=== PATIENT | female | born 1950 | race African-American/Black ===

== ENCOUNTER 2018-02-12 08:30 | Inpatient (IN) ==
[2018-02-12 09:27] LABS: Lactic Acid 4.3 MMOL/L (0.4-2.0)
[2018-02-12] MEDS ORDERED: SODIUM CHLORIDE 0.9% 1,000 ML IV STA ×3 (09:46→12:31)
[2018-02-12] MEDS ORDERED: ACETAMINOPHEN 500 MG TABLET PO STA (09:48)
[2018-02-12 10:15] LABS: Basophils % 0.2 % (0.0-0.8); Eosinophils % 0.1 % (0.00-10.9); Immature Granulocytes % 1.1 %; Immature Granulocytes Absolute 0.23 #; Lymphocytes # 0.5 10*3/uL (1.4-4.0); Lymphocytes % 2.4 % (21.3-54.2); Mean Corpuscular HGB Conc 32.5 GM/DL (32-36); Mean Corpuscular Hemoglobin 30 PG (27-34); Mean Corpuscular Volume 92.2 FL (87-102); Mean Platelet Volume 12.2 FL (9.6-12.0); Monocytes # 0.5 10*3/uL (0.11-0.8); Monocytes % 2.3 % (1.7-12.7); Neutrophils % 93.9 % (38.7-73.9); Platelet Count 209 T/CUMM (130-400); Red Blood Count 4.34 MC/CUMM (3.8-5.5); Red Cell Distribution Width 12.2 % (9.3-17.3); White Blood Count 20.3 T/CUMM (4-12)
[2018-02-12 10:31] LABS: Albumin 3.3 G/DL (3.4-5.0); Bilirubin,Total 1.2 MG/DL (0.2-1.0); Calcium 9.7 MG/DL (8.5-10.1); Potassium 3.4 MMOL/L (3.5-5.1); Total Protein 8.4 G/DL (6.4-8.3)
[2018-02-12 10:47] LABS: Apearance,Urine Slightly Hazy (Clear); Bacteria,Urine Occasional /HPF (Few); Bilirubin,Urine Negative (Negative); Blood, Urine Negative (Negative); Glucose,Urine (UA) 50 mg/dL (Negative); Hyaline Casts,Urine 3 /LPF (0-3); Ketones,Urine Negative (Negative); Mucus,Urine Occasional /LPF (Occasional); Nitrite,Urine Negative (Negative); Protein,Urine 30 MG/DL; RBC,Urine 6 /HPF (0-4); Squamous Epithelial Cell,Urine Occasional /HPF (0-10); Urine Color Amber (Yellow); Urine Specific Gravity 1.019 (1.001-1.035); Urine Urobilinogen < 2.0 EU/DL (0.2-1.0); WBC,Urine 2 /HPF (0-6)
[2018-02-12 11:03] LABS: Band Neutrophils 6 % (0-10); Hypochromasia Slight; Lymphocytes 2 % (20-55); Platelet Estimate Normal; Polychromasia Slight; Segmented Neutrophils 90 % (50-85); Total Cells Counted 100
[2018-02-12] MEDS ORDERED: LEVOFLOXACIN INJ 750 MG in PREMIX 1 EACH IV STA (12:09)
[2018-02-12] MEDS ORDERED: ONDANSETRON 4 MG/2 ML VIAL IV PRN (12:25)
[2018-02-12] MEDS ORDERED: DOCUSATE SODIUM 100 MG CAPSULE PO PRN (12:25)
[2018-02-12] MEDS ORDERED: GLUCAGON 1 MG VIAL IM PRN (12:25)
[2018-02-12] MEDS ORDERED: ACETAMINOPHEN 325 MG TABLET PO PRN (12:25)
[2018-02-12] MEDS ORDERED: DEXTROSE 50% 25 GM/50 ML VIAL IV PRN (12:25)
[2018-02-12] MEDS: ENOXAPARIN 30 MG/0.3 ML SYRINGE SUBCUT SCH (14:40)
[2018-02-12] MEDS: SODIUM CHLORIDE 0.9% 1,000 ML IV SCH (15:51)
[2018-02-12] MEDS ORDERED: LEVOFLOXACIN INJ 500 MG in PREMIX 1 EACH IV ONE (17:00)
[2018-02-12] MEDS: INSULIN LISPRO 100 UNIT/ML SUBCUT SCH ×2 (19:07→21:00)
[2018-02-12] MEDS: METOPROLOL TARTRATE 50 MG TABLET PO SCH (21:24)
[2018-02-12] MEDS: OSELTAMIVIR 75 MG CAPSULE PO SCH (21:24)
[2018-02-13] MEDS: SODIUM CHLORIDE 0.9% 1,000 ML IV SCH ×4 (00:07→22:16)
[2018-02-13] MEDS: ACETAMINOPHEN 325 MG TABLET PO PRN ×2 (00:07→14:18)
[2018-02-13 06:39] LABS: Basophils # 0.1 10*3/uL (0.0-0.2); Basophils % 0.3 % (0.0-0.8); Hematocrit 38.1 VOL% (35.7-47.0); Hemoglobin 12.1 GM/DL (12.0-16.0); Immature Granulocytes % 2.4 %; Immature Granulocytes Absolute 0.64 #; Lymphocytes # 1.5 10*3/uL (1.4-4.0); Lymphocytes % 5.9 % (21.3-54.2); Mean Corpuscular HGB Conc 31.8 GM/DL (32-36); Mean Corpuscular Hemoglobin 30 PG (27-34); Mean Corpuscular Volume 93.2 FL (87-102); Mean Platelet Volume 12.2 FL (9.6-12.0); Monocytes # 0.6 10*3/uL (0.11-0.8); Monocytes % 2.1 % (1.7-12.7); Neutrophils # 23.3 10*3/uL (1.4-7.4); Neutrophils % 89.3 % (38.7-73.9); Platelet Count 180 T/CUMM (130-400); Red Blood Count 4.09 MC/CUMM (3.8-5.5); Red Cell Distribution Width 12.7 % (9.3-17.3); White Blood Count 26.2 T/CUMM (4-12)
[2018-02-13 06:53] LABS: Albumin 2.8 G/DL (3.4-5.0); Bilirubin,Total 1.6 MG/DL (0.2-1.0); Calcium 8.3 MG/DL (8.5-10.1); Potassium 3.4 MMOL/L (3.5-5.1); Total Protein 8.1 G/DL (6.4-8.3)
[2018-02-13 07:10] LABS: Band Neutrophils 10 % (0-10); Eosinophils 1 % (0-10); Hypochromasia Slight; Lymphocytes 4 % (20-55); Metamyelocytes 1 %; Segmented Neutrophils 84 % (50-85); Total Cells Counted 100
[2018-02-13 07:11] LABS: Microcytosis Slight; Platelet Estimate Adequate
[2018-02-13] MEDS ORDERED: POTASSIUM CHLORIDE 20 MEQ TABLET PO ONE (08:51)
[2018-02-13] MEDS: INSULIN LISPRO 100 UNIT/ML SUBCUT SCH ×5 (09:59→22:38)
[2018-02-13] MEDS: PANTOPRAZOLE 40 MG TABLET PO SCH (10:00)
[2018-02-13] MEDS: METOPROLOL TARTRATE 50 MG TABLET PO SCH ×2 (10:00→20:35)
[2018-02-13] MEDS: OSELTAMIVIR 75 MG CAPSULE PO SCH ×2 (10:00→20:35)
[2018-02-13] MEDS: amLODIPine 10 MG TABLET PO SCH (10:03)
[2018-02-13] MEDS: glipiZIDE 5 MG TABLET PO SCH (10:03)
[2018-02-13] MEDS: ENOXAPARIN 30 MG/0.3 ML SYRINGE SUBCUT SCH (12:35)
[2018-02-13] MEDS: metroNIDAZOLE INJ 500 MG in PREMIX 1 EACH IV SCH ×2 (14:18→20:34)
[2018-02-13] MEDS ORDERED: MAGNESIUM SULF RIDER 4 GM in PREMIX 1 EACH IV ONE (14:39)
[2018-02-13] MEDS ORDERED: LEVOFLOXACIN INJ 250 MG in PREMIX 1 EACH IV SCH (21:00)
[2018-02-14 01:48] LABS: Basophils # 0.1 10*3/uL (0.0-0.2); Basophils % 0.2 % (0.0-0.8); Hematocrit 32.3 VOL% (35.7-47.0); Hemoglobin 10.5 GM/DL (12.0-16.0); Immature Granulocytes % 2.1 %; Immature Granulocytes Absolute 0.49 #; Lymphocytes # 1.5 10*3/uL (1.4-4.0); Lymphocytes % 6.2 % (21.3-54.2); Mean Corpuscular HGB Conc 32.5 GM/DL (32-36); Mean Corpuscular Hemoglobin 30 PG (27-34); Mean Corpuscular Volume 92.3 FL (87-102); Mean Platelet Volume 12.3 FL (9.6-12.0); Monocytes # 0.7 10*3/uL (0.11-0.8); Monocytes % 2.9 % (1.7-12.7); Neutrophils # 20.9 10*3/uL (1.4-7.4); Neutrophils % 88.6 % (38.7-73.9); Platelet Count 156 T/CUMM (130-400); Red Cell Distribution Width 12.8 % (9.3-17.3); White Blood Count 23.6 T/CUMM (4-12)
[2018-02-14 02:09] LABS: Albumin 2.3 G/DL (3.4-5.0); Bilirubin,Total 1.3 MG/DL (0.2-1.0); Calcium 7.9 MG/DL (8.5-10.1); Osmolality,Calculated 279.8 MOS/KG (273-304); Potassium 3.5 MMOL/L (3.5-5.1); Total Protein 7.1 G/DL (6.4-8.3)
[2018-02-14 02:16] LABS: Lactic Acid 1.7 MMOL/L (0.4-2.0)
[2018-02-14] MEDS: metroNIDAZOLE INJ 500 MG in PREMIX 1 EACH IV SCH ×2 (02:25→08:23)
[2018-02-14 02:41] LABS: Band Neutrophils 7 % (0-10); Eosinophils 1 % (0-10); Lymphocytes 9 % (20-55); Metamyelocytes 1 %; Segmented Neutrophils 75 % (50-85); Total Cells Counted 100
[2018-02-14 02:42] LABS: Hypochromasia Slight; Platelet Estimate Adequate
[2018-02-14 05:25] LABS: Basophils # 0.1 10*3/uL (0.0-0.2); Basophils % 0.3 % (0.0-0.8); Hematocrit 30.5 VOL% (35.7-47.0); Hemoglobin 9.8 GM/DL (12.0-16.0); Immature Granulocytes % 1.9 %; Immature Granulocytes Absolute 0.41 #; Lymphocytes # 1.6 10*3/uL (1.4-4.0); Lymphocytes % 7.2 % (21.3-54.2); Mean Corpuscular HGB Conc 32.1 GM/DL (32-36); Mean Corpuscular Hemoglobin 30 PG (27-34); Mean Corpuscular Volume 92.7 FL (87-102); Mean Platelet Volume 12.1 FL (9.6-12.0); Monocytes # 0.6 10*3/uL (0.11-0.8); Monocytes % 2.6 % (1.7-12.7); Neutrophils # 19.2 10*3/uL (1.4-7.4); Platelet Count 147 T/CUMM (130-400); Red Blood Count 3.29 MC/CUMM (3.8-5.5); Red Cell Distribution Width 12.8 % (9.3-17.3); White Blood Count 21.8 T/CUMM (4-12)
[2018-02-14 05:55] LABS: Albumin 2.3 G/DL (3.4-5.0); Bilirubin,Total 1.3 MG/DL (0.2-1.0); Calcium 7.7 MG/DL (8.5-10.1); Osmolality,Calculated 279.8 MOS/KG (273-304); Potassium 3.4 MMOL/L (3.5-5.1); Total Protein 6.8 G/DL (6.4-8.3)
[2018-02-14 05:57] LABS: Band Neutrophils 2 % (0-10); Lymphocytes 5 % (20-55); Segmented Neutrophils 92 % (50-85); Total Cells Counted 100
[2018-02-14 05:58] LABS: Hypochromasia Slight; Platelet Estimate Adequate; Polychromasia Slight
[2018-02-14] MEDS ORDERED: POTASSIUM CHLORIDE 20 MEQ TABLET PO ONE (06:02)
[2018-02-14] MEDS: INSULIN LISPRO 100 UNIT/ML SUBCUT SCH ×4 (08:25→20:22)
[2018-02-14] MEDS: OSELTAMIVIR 75 MG CAPSULE PO SCH ×2 (08:26→20:22)
[2018-02-14] MEDS: PANTOPRAZOLE 40 MG TABLET PO SCH (08:26)
[2018-02-14] MEDS: glipiZIDE 5 MG TABLET PO SCH (08:27)
[2018-02-14] MEDS: amLODIPine 10 MG TABLET PO SCH (08:27)
[2018-02-14] MEDS ORDERED: ASPIRIN EC 81 MG TABLET PO SCH (09:00)
[2018-02-14] MEDS: SODIUM CHLORIDE 0.9% 1,000 ML IV SCH ×3 (09:21→20:41)
[2018-02-14] MEDS: METOPROLOL TARTRATE 50 MG TABLET PO SCH ×2 (10:18→20:22)
[2018-02-14] MEDS: ENOXAPARIN 30 MG/0.3 ML SYRINGE SUBCUT SCH ×2 (11:53→14:32)
[2018-02-14] MEDS ORDERED: LEVOFLOXACIN INJ 500 MG in PREMIX 1 EACH IV SCH (12:00)
[2018-02-15 06:05] LABS: Calcium 7.8 MG/DL (8.5-10.1); Osmolality,Calculated 285.3 MOS/KG (273-304); Potassium 3.7 MMOL/L (3.5-5.1)
[2018-02-15 08:33] VITALS: BP 119/67
[2018-02-15 08:47] LABS: Basophils # 0.1 10*3/uL (0.0-0.2); Basophils % 0.4 % (0.0-0.8); Eosinophils # 0.3 10*3/uL (0.0-0.87); Hemoglobin 9.3 GM/DL (12.0-16.0); Immature Granulocytes % 0.7 %; Immature Granulocytes Absolute 0.09 #; Lymphocytes # 2.1 10*3/uL (1.4-4.0); Mean Corpuscular HGB Conc 32.1 GM/DL (32-36); Mean Corpuscular Hemoglobin 30 PG (27-34); Mean Corpuscular Volume 92.1 FL (87-102); Mean Platelet Volume 12.8 FL (9.6-12.0); Monocytes # 0.6 10*3/uL (0.11-0.8); Monocytes % 4.5 % (1.7-12.7); Neutrophils # 10.6 10*3/uL (1.4-7.4); Neutrophils % 77.4 % (38.7-73.9); Platelet Count 142 T/CUMM (130-400); Red Blood Count 3.15 MC/CUMM (3.8-5.5); Red Cell Distribution Width 13.1 % (9.3-17.3); White Blood Count 13.7 T/CUMM (4-12)
[2018-02-15] MEDS: amLODIPine 10 MG TABLET PO SCH (09:17)
[2018-02-15] MEDS: glipiZIDE 5 MG TABLET PO SCH (09:17)
[2018-02-15] MEDS: PANTOPRAZOLE 40 MG TABLET PO SCH (09:17)
[2018-02-15] MEDS: INSULIN LISPRO 100 UNIT/ML SUBCUT SCH (09:18)
[2018-02-15] MEDS: OSELTAMIVIR 75 MG CAPSULE PO SCH (09:18)
[2018-02-15] MEDS: METOPROLOL TARTRATE 50 MG TABLET PO SCH (09:18)
[2018-02-15] MEDS: SODIUM CHLORIDE 0.9% 1,000 ML IV SCH ×2 (10:35→11:59)
== END 2018-02-15 12:16 | disposition home or self-care (01) | DRG 872 ==
LOC: N.ED 08:30 → N.EDINP 12:25 → N.5E 14:01
PROVIDERS: ADMIT Internal Medicine; ATTEND Internal Medicine

== ENCOUNTER 2018-10-21 05:39 | Observation (INO) ==
[2018-10-21 07:41] LABS: Basophils # 0.1 10*3/uL (0.0-0.2); Basophils % 0.3 % (0.0-0.8); Eosinophils % 0.2 % (0.00-10.9); Hematocrit 36.5 VOL% (35.7-47.0); Hemoglobin 11.4 GM/DL (12.0-16.0); Immature Granulocytes % 0.6 %; Lymphocytes # 0.9 10*3/uL (1.4-4.0); Mean Corpuscular HGB Conc 31.2 GM/DL (32-36); Mean Corpuscular Volume 93.6 FL (87-102); Mean Platelet Volume 11.5 FL (9.6-12.0); Monocytes % 2.9 % (1.7-12.7); Platelet Count 202 T/CUMM (130-400); Red Cell Distribution Width 12.6 % (9.3-17.3); White Blood Count 17.9 T/CUMM (4-12)
[2018-10-21 08:01] LABS: Albumin 3.3 G/DL (3.4-5.0); Bilirubin,Total 0.9 MG/DL (0.2-1.0); Calcium 9.3 MG/DL (8.5-10.1); Osmolality,Calculated 280.8 MOS/KG (273-304); Total Protein 8.3 G/DL (6.4-8.3)
[2018-10-21 08:45] LABS: Apearance,Urine CLEAR (Clear); Bilirubin,Urine Negative (Negative); Blood, Urine Large mg/dL (Negative); Glucose,Urine (UA) Negative (Negative); Ketones,Urine Negative (Negative); Nitrite,Urine Negative (Negative); Protein,Urine Negative; Urine Color Colorless (Yellow); Urine Urobilinogen < 2.0 EU/DL (0.2-1.0)
[2018-10-21 09:07] LABS: RBC,Urine Rare /HPF (0-4); WBC,Urine Occasional /HPF (0-6)
[2018-10-21 09:11] LABS: Band Neutrophils 4 % (0-10); Lymphocytes 1 % (20-55); Schistocytes Slight; Segmented Neutrophils 92 % (50-85); Total Cells Counted 100
[2018-10-21 09:12] LABS: Platelet Estimate Normal
[2018-10-21] MEDS ORDERED: SODIUM CHLORIDE 0.9% 500 ML IV STA (09:17)
[2018-10-21] MEDS ORDERED: LEVOFLOXACIN INJ 500 MG in PREMIX 1 EACH IV STA (09:18)
[2018-10-21] MEDS ORDERED: GLUCAGON 1 MG VIAL IM PRN (10:27)
[2018-10-21] MEDS ORDERED: DOCUSATE SODIUM 100 MG CAPSULE PO PRN (10:27)
[2018-10-21] MEDS ORDERED: DEXTROSE 10% 25 GM/250 ML BAG IV PRN (10:27)
[2018-10-21] MEDS ORDERED: diphenhydrAMINE CAP 25 MG CAPSULE PO PRN (10:27)
[2018-10-21] MEDS ORDERED: ONDANSETRON 4 MG/2 ML VIAL IV PRN (10:27)
[2018-10-21] MEDS ORDERED: BISACODYL 5 MG TABLET PO PRN (10:27)
[2018-10-21] MEDS ORDERED: ACETAMINOPHEN 325 MG TABLET PO PRN (10:27)
[2018-10-21] MEDS ORDERED: SODIUM CHLORIDE 0.9% 1,000 ML IV STA (10:38)
[2018-10-21] MEDS: SODIUM CHLORIDE 0.9% 1,000 ML IV SCH ×2 (11:30→19:50)
[2018-10-21] MEDS: amLODIPine 10 MG TABLET PO SCH (12:45)
[2018-10-21] MEDS: metFORMIN 500 MG TABLET PO SCH ×2 (12:45→20:48)
[2018-10-21] MEDS: PANTOPRAZOLE 40 MG TABLET PO SCH (12:45)
[2018-10-21] MEDS: ENOXAPARIN 40 MG/0.4 ML SYRINGE SUBCUT SCH (12:46)
[2018-10-21] MEDS: INSULIN REGULAR 100 UNIT/ML SUBCUT SCH ×3 (16:11→21:12)
[2018-10-22] MEDS: SODIUM CHLORIDE 0.9% 1,000 ML IV SCH (03:50)
[2018-10-22 05:31] LABS: Basophils # 0.1 10*3/uL (0.0-0.2); Basophils % 0.2 % (0.0-0.8); Hematocrit 30.7 VOL% (35.7-47.0); Hemoglobin 9.8 GM/DL (12.0-16.0); Immature Granulocytes % 0.7 %; Immature Granulocytes Absolute 0.17 #; Lymphocytes # 2.3 10*3/uL (1.4-4.0); Lymphocytes % 9.9 % (21.3-54.2); Mean Corpuscular HGB Conc 31.9 GM/DL (32-36); Mean Corpuscular Volume 93.3 FL (87-102); Mean Platelet Volume 11.7 FL (9.6-12.0); Monocytes % 3.6 % (1.7-12.7); Neutrophils % 85.6 % (38.7-73.9); Platelet Count 174 T/CUMM (130-400); Red Blood Count 3.29 MC/CUMM (3.8-5.5); White Blood Count 22.7 T/CUMM (4-12)
[2018-10-22 06:07] LABS: Albumin 2.7 G/DL (3.4-5.0); Bilirubin,Total 1.3 MG/DL (0.2-1.0); Calcium 8.9 MG/DL (8.5-10.1); Osmolality,Calculated 278.5 MOS/KG (273-304); Total Protein 7.2 G/DL (6.4-8.3)
[2018-10-22 06:41] LABS: Lymphocytes 11 % (20-55); Platelet Estimate Adequate; Polychromasia Slight; Segmented Neutrophils 85 % (50-85); Total Cells Counted 100
[2018-10-22 06:42] LABS: Hypochromasia Slight
[2018-10-22] MEDS: INSULIN REGULAR 100 UNIT/ML SUBCUT SCH (07:28)
[2018-10-22 07:45] VITALS: BP 117/61
[2018-10-22] MEDS ORDERED: LEVOFLOXACIN INJ 750 MG in PREMIX 1 EACH IV SCH (09:00)
[2018-10-22] MEDS ORDERED: ATORVASTATIN 10 MG TABLET PO SCH (09:00)
[2018-10-22] MEDS ORDERED: LISINOPRIL 20 MG TABLET PO SCH (09:00)
[2018-10-22] MEDS: amLODIPine 10 MG TABLET PO SCH (09:39)
[2018-10-22] MEDS: PANTOPRAZOLE 40 MG TABLET PO SCH (09:39)
[2018-10-22] MEDS: metFORMIN 500 MG TABLET PO SCH (09:40)
[2018-10-22] MEDS: ENOXAPARIN 40 MG/0.4 ML SYRINGE SUBCUT SCH (11:12)
== END 2018-10-22 11:30 | disposition home or self-care (01) ==
LOC: N.2E 05:39 → N.EDINP 05:39 → N.ED 05:39 → SUATTDRO 10:27 → N.EDINP 11:28
PROVIDERS: ADMIT Internal Medicine; ATTEND Phlebology